=== PATIENT | male | born 1960 | race Caucasian/White ===

== ENCOUNTER 2019-11-25 19:14 | Emergency (ER) | payer OTHER, SELFPAY ==
--- NOTE | ~2019-11-25 | XR_ITS ---
EXAMINATION: XR abdomen/kub 1V DATE: 11/25/2019 19:55 INDICATION: Abdominal distention. TECHNIQUE: A supine view of the abdomen on 2 radiographs was obtained. COMPARISON: None. FINDINGS: There are no dilated loops of bowel. There is a moderate volume of stool in the colon. A ca lcification in the left pelvis is likely a phlebolith. A 3 mm density overlies the right ilium. IMPRESSION: 1. Normal bowel gas pattern. 2. 3 mm density overlying the right ilium, which may be a foreign body. Reviewed, dictated and finalized at location A.
--- NOTE | 2019-11-25 19:17 | ED.GENADULT ---
HPI - General Adult General Chief complaint: Upper Respiratory Infection Stated complaint: sob Time Seen by Provider: 11/25/19 19:33 Source: patient Mode of arrival: ambulatory Limitations: no limitations History of Present Illness HPI narrative: 59-year-old male patient [facility] with complaints of abdominal bloating and feeling full which is causing some shortness of breath. Patient states he has had the symptoms for the past 3 days. Denies any fevers or cough. Denies any chest pain. Denies any nausea or vomiting. Denies any diarrhea. Patient states that he had a bowel movement yesterday. Patient states he has had issues with constipation before in the past. Related Data Home Medications Medication Instructions Recorded Confirmed No Home Medications 11/25/19 11/25/19 Allergies Allergy/AdvReac Type Severity Reaction Status Date / Time No Known Drug Allergies Allergy Unknown Verified 02/09/17 01:48 Review of Systems Review of Systems: Narrative: CONSTITUTIONAL: Denies fever, chills, or sweats. EYES: Denies visual changes, redness, or discharge. ENT: Denies rhinorrhea, congestion, sore throat, or otalgia. CARDIOVASCULAR: Denies chest pain, palpitations, or edema. RESPIRATORY: Denies cough, positive dyspnea. GASTROINTESTINAL: Positive abdominal bloating, denies nausea, vomiting, or diarrhea. GENITOURINARY: Denies dysuria or hematuria. SKIN: Denies rash or itching. MUSCULOSKELETAL: Denies back pain, joint pain, or myalgia. NEUROLOGIC: Denies headache, numbness, or weakness. PSYCHIATRIC: Denies anxiety or depression. PMFSH Comments At the time of my signature I agree with nursing past medical history, surgical, social, and family history. There is no relevant family history pertinent to the presenting complaint. Exam Narrative: Exam Narrative: GENERAL: Well-appearing, well-nourished, and in no acute distress. HEAD: Normocephalic, atraumatic. EYES: PERRLA and EOMI. ENT: Nares clear, no rhinorrhea or epistaxis. Mucous membranes moist. NECK: Supple. No lymphadenopathy CHEST: Clear to auscultation. No respiratory distress. HEART: Regular rate and rhythm. No murmur heard. Normal peripheral pulses. ABDOMEN: Soft, flat, nondistended. No guarding, rebound tenderness, or rigid. No pulsatilla masses. Hyperactive bowel sounds present to left upper quadrant and right upper quadrant, slightly decreased to the left lower quadrant and right quadrants. No organomegaly. Negative Schumacher?s sign. No periumbicial tenderness. No Supra public tenderness or distension. Good femoral pulses bilaterally. No hernia noted. No scars or surface trauma. EXTREMITIES: Normal range of motion. No edema. SKIN: Warm, dry, no rash. NEURO: No focal deficits. Alert and oriented x3. Course Reevaluation(s) Reevaluation #1: Reevaluated patient after his x-ray had resulted. Discussed with him that his KUB does show a moderate amount of constipation which could be with causing the symptoms. Discussed with him that sometimes when he is bloated or if he has a lot of constipation it could push on his diaphragm causing the shortness of breath. Discussed with patient that I would recommend doing some MiraLAX to see if the constipation is resolved that way and therefore resolving his shortness of breath however if his symptoms do get increasingly worse I would recommend that he go to the ER for further evaluation and treatment. Discussed with patient the fact that he is not running any fevers having a cough or shortness of breath is reassuring at this time. Patient verbalized understanding denies any other questions or concerns at this time. Date: 11/25/19 Time: 20:07 Vital Signs Vital signs: Vital Signs Temperature 37.1 C 11/25/19 19:25 Pulse Rate 77 11/25/19 19:25 Respiratory Rate 16 11/25/19 19:25 Blood Pressure 177/89 H 11/25/19 19:25 Pulse Oximetry 98 11/25/19 19:25 Temperature 37.1 C 11/25/19 19:25 Pulse Rate 77
[2019-11-25 19:25] VITALS: BP 177/89; PULSE 77; RESP 16; TEMP 37.1; O2SAT 98
== END 2019-11-25 20:10 | disposition home or self-care (01) ==
PROVIDERS: Emergency Provider Nurse Practitioner Family
DX: K59.00 Constipation, unspecified (principal)
CPT/HCPCS: 74018; 99213; G0463